=== PATIENT | female | born 1995 | race Two or more races ===

== ENCOUNTER 2024-02-18 21:52 | Inpatient (IN) | payer OTHER ==
[~2024-02-18] VITALS: Ht 160 cm; Wt 75.0 kg
[2024-02-18] MEDS ORDERED: DEXTROSE (50%) 50ML SYRG IV PRN (22:15)
--- NOTE | 2024-02-18 22:26 | ED.PDOC ---
History of Present Illness HPI Comments 28-year-old female with a history of type 1 diabetes states that she ran out of insulin short-acting while she was driving to [place] and has not been able to use her short-acting insulin for the last 3 or 4 days and then developed some lower back pain radiating to her lower abdomen with copious nausea and vomiting over the last 2 days. Patient presented to [facility] and was diagnosed with diabetic ketoacidosis and was transferred to [facility] for further inpatient care. 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 Hx Family History Family History: Reviewed,noncontributory to illness Social History Smoker: Non-Smoker Drugs: Denies Drug Use Constitutional: reports: fatigue, malaise, weakness Gastrointestinal: reports: abdominal pain, nausea, vomiting Musculoskeletal: reports: back pain All Other Systems: Reviewed and Negative Physical Exam General Appearance: Mild Distress, Normal HEENT: Normal ENT Inspection, Pharynx Normal, TMs Normal Neck: Full Range of Motion, Non-Tender, Normal, Normal Inspection Respiratory: Chest Non-Tender, Lungs Clear, No Accessory Muscle Use, No Respiratory Distress, Normal Breath Sounds Cardiovascular: Tachycardia Breast Exam: Deferred Gastrointestinal: No Organomegaly, Non Tender, No Pulsatile Mass, Normal Bowel Sounds, Soft Genitalia: Deferred Pelvic: Deferred Rectal: Deferred Extremities: No calf tenderness, Normal capillary refill, Normal inspection, Normal range of motion, Non-tender, No pedal edema Musculoskeletal : Apperance: Normal Neurologic: Alert, nutrition services aide II-XII nml as Tested, No Motor Deficits, Normal Affect, Normal Mood, No Sensory Deficits Cerebellar Function: Normal Reflexes: Normal Skin: Dry, Normal Color, Warm Lymphatic: No Adenopathy Was a procedure done? Was a procedure done?: No Differential Dx Considerations may include: Differential diagnosis includes but not limited to: Diabetic ketoacidosis, hyperosmolar syndrome, dehydration, sepsis, acute renal injury, end-organ failure and others X-Ray, Labs, Meds, VS Vital Signs Date Time Temp Pulse Resp B/P (MAP) Pulse Ox O2 Delivery O2 Flow Rate FiO2 02/18/24 22:30 96.5 99 18 124/82 (96) 100 96.5 02/18/24 22:06 96.5 104 18 122/83 (96) 98 02/18/24 22:06 Room Air* 0 21 Lab Test 02/18/24 22:45 02/18/24 22:39 02/18/24 22:27 Range/Units Blood Gas Specimen Type Arterial Blood Gas Sample Site Left radial Blood Gas Patient Temperature 37.0 Arterial Blood Date Drawn [id number] Arterial Blood pH 7.329 L 7.350-7.450 Arterial Blood Partial Pressure CO2 22.1 L 32.0-45.0 mmHg Arterial Blood Partial Pressure O2 101.8 83.0-108.0 mmHg Arterial Blood HCO3 11.4 L 21.0-28.0 mmol/L Arterial Blood Oxygen Saturation 97.9 94.0-98.0 % Arterial Blood Base Excess -12.4 L -2.0-3.0 mmol/L Arterial Blood Oxyhemoglobin 96.6 94.0-98.0 % Arterial Blood Carboxyhemoglobin 0.6 0.5-1.5 % Arterial Blood Methemoglobin 0.7 0.0-1.5 % Yaniv Test Yes Blood Gas Total Hemoglobin 13.90 12.0-16.0 g/dL Blood Gas Modality Room air FiO2 % 21.0 Specimen Drawn By Che cuello rrt Blood Gas Critical Value Read Back yes Blood Gas Notified Time [id number] Urine Color Colorless Yellow Urine Clarity Turbid H Clear Urine pH 6.0 5.0-9.0 Urine Specific [place] 1.007 1.001-1.035 Urine Protein Trace H Negative Urine Ketones 3+ H Negative Urine Blood 1+ H Negative /uL Urine Nitrite Negative Negative Urine Bilirubin Negative Negative Urine Urobilinogen Normal Negative mg/dL Urine Leukocyte Esterase Trace Negative /uL Urine RBC 2 0 - 4 /hpf Urine WBC 8 0 - 5 /hpf Urine Squamous Epithelial Cells Few <5 /hpf Urine Bacteria Many H None Seen /hpf Urine Glucose Normal Normal mg/dL White Blood Count 9.7 4.4-10.8 10^3/uL Red Blood Count 4.44 4.0-5.20 10^6/uL Hemoglobin 14.5 12.2-16.2 g/dL Hematocrit 42.6 36.0-46.0 % Mean Corpuscular Volume 95.9 80.0-100.0 fL Mean Corpuscular Hemoglobin 32.6 H 28.0-32.0 pg Mean Corpuscular Hemoglobin Concent 34.0 32.0-36.0 g/dL Red Cell Distribution Width 12.8 11.8-14.3 % Platelet Count 290 140-450 10^3/uL Mean Platelet Volume 8.2 6.9-10.8 fL Neutrophils (%) (Auto) 69.8 37.0-80.0 % Lymphocytes (%) (Auto) 17.1 10.0-50.0 % Monocytes (%) (Auto) 12.2 H 0.0-12.0 % Eosinophils (%) (Auto) 0.1 0.0-7.0 % Basophils (%) (Auto) 0.8 0.0-2.0 % Neutrophils # (Auto) 6.7 1.6-8.6 10 ^3/uL Lymphocytes # (Auto) 1.7 0.4-5.4 10 ^3/uL Monocytes # (Auto) 1.2 0-1.3 10 ^3/uL Eosinophils # (Auto) 0 0-0.8 10 ^3/uL Basophils # (Auto) 0.1 0-0.2 10 ^3/uL Nucleated Red Blood Cells 0.0 % Sodium Level 137 136-145 mmol/L Potassium Level 3.0 L 3.5-5.1 mmol/L Chloride Level 108 H 98-107 mmol/L Carbon Dioxide Level 14 L 20-31 mmol/L Anion Gap 15 5-15 Blood Urea Nitrogen 8 L 9-23 mg/dL Creatinine 0.95 0.550-1.02 mg/dL Glomerular Filtration Rate Calc 84 >90 mL/min BUN/Creatinine Ratio 8.4 L 10.0-20.0 Serum Glucose 96 74-106 mg/dL Calcium Level 9.1 8.7-10.4 mg/dL Total Bilirubin 1.1 H 0.2-1.0 mg/dL Aspartate Amino Transferase (AST) 26 13-40 U/L Alanine Aminotransferase (ALT) 33 7-40 U/L Alkaline Phosphatase 81 46-116 U/L Total Protein 6.7 5.7-8.2 g/dL Albumin 4.4 3.2-4.8 g/dL Beta-Hydroxybutyric Acid 2.892 H < 0.4 mmol/L Current Medications Medications (Trade) Dose Ordered Sig/Chavo Route Start Time Stop Time Status Last Admin Potassium Chloride/Dextrose/ Sod Cl 1,000 ml @ 120 mls/hr Q8H20M ONCE IV 02/18/24 22:15 02/19/24 06:34 02/18/24 22:30 Diagnostic Test (Pha) (Accu-Chek Comfort Curve T) 1 strip Q90MIN 02/18/24 22:30 02/18/24 22:49 Insulin Glargine (Lantus) 15 units ONCE ONCE SC 02/18/24 22:15 02/18/24 22:18 DC 02/18/24 22:36 Time of 1ST Reevaluation: 22:24 Reevaluation 1ST: Unchanged Patient Education/Counseling: Diagnosis, Treatment Family Education/Counseling: No Family Present Sepsis Sepsis Reasesment Focused Exam Sepsis focused exam: focus exam completed Departure 1 Departure Time of Disposition: 22:25 Impression: Primary Impression: Diabetic ketoacidosis Additional Impression: Diabetic ketoacidosis associated with type 1 diabetes mellitus Disposition: ADMITTED INPATIENT Admit to: ICU Condition: Critical Critical Care Note Critical Care Time?: Yes (35 min-critical care time only) Critical care comment: Total critical care time: Approximately 36 minutes Due to a high probability of clinically significant, life threatening deterioration, the patient required my highest level of preparedness to intervene emergently and I personally spent this critical care time directly and personally managing the patient. This critical care time included obtaining a history; examining the patient; pulse oximetry; ordering and review of studies; arranging urgent treatment with development of a management plan; evaluation of patient's response to treatment; frequent reassessment; and, discussions with other providers. This critical care time was performed to assess and manage the high probability of imminent, life-threatening deterioration that could result in multi-organ failure. It was exclusive of separately billable procedures and treating other patients. Stability Stability form required: MARY Jo MD Feb 18, 2024 22:26
[2024-02-18] MEDS: D5W/SOD CHL 0.45%/KCL 40MEQ 1,000 ML IV ONE (22:30)
[2024-02-18] MEDS: INSULIN LANTUS (GLARGINE) 1 /0.01ml (100units/ml) SC ONE (22:36)
[2024-02-18 22:41] LABS: Basophils # (auto) 0.1 10 ^3/uL (0-0.2); Basophils % (auto) 0.8 % (0.0-2.0); Eosinophils # (auto) 0 10 ^3/uL (0-0.8); Eosinophils % (auto) 0.1 % (0.0-7.0); Hematocrit 42.6 % (36.0-46.0); Hemoglobin 14.5 g/dL (12.2-16.2); Lymphocytes # (auto) 1.7 10 ^3/uL (0.4-5.4); Lymphocytes % (auto) 17.1 % (10.0-50.0); Mean Corpuscular Hemoglobin 32.6 pg (28.0-32.0); Mean Corpuscular Volume 95.9 fL (80.0-100.0); Monocytes # (auto) 1.2 10 ^3/uL (0-1.3); Monocytes % (auto) 12.2 % (0.0-12.0); Neutrophils # (auto) 6.7 10 ^3/uL (1.6-8.6); Neutrophils % (auto) 69.8 % (37.0-80.0); Platelet Count (auto) 290 10^3/uL (140-450); Red Blood Cells 4.44 10^6/uL (4.0-5.20); Red Cell Distribution Width 12.8 % (11.8-14.3); White Blood Cell 9.7 10^3/uL (4.4-10.8)
[2024-02-18 22:46] LABS: Urine Bacteria MANY /hpf (None Seen); Urine Blood 1+ /uL (Negative); Urine Clarity Turbid (Clear); Urine Color Colorless (Yellow); Urine Protein, UAD TRACE (Negative); Urine Specific Gravity 1.007 (1.001-1.035); Urine Squamous Epithelial Cell FEW /hpf (<5); Urine Urobilinogen Normal (Negative); Urine WBC 8 /hpf (0 - 5)
[2024-02-18] MEDS: ACCU-CHEK COMFORT CURVE STRIP VI SCH (22:49)
[2024-02-18 22:57] LABS: Base Excess -12.4 mmol/L (-2.0-3.0)
[2024-02-18 22:57] LABS: Alanine Aminotransferase 33 U/L (7-40); Albumin 4.4 g/dL (3.2-4.8); Alkaline Phosphatase 81 U/L (46-116); Anion Gap 15 (5-15); Aspartate Aminotransferase 26 U/L (13-40); BUN/Creatinine Ratio 8.4 (10.0-20.0); Bilirubin, Total 1.1 mg/dL (0.2-1.0); Calcium 9.1 mg/dL (8.7-10.4); Glucose 96 mg/dL (74-106); Sodium 137 mmol/L (136-145)
[2024-02-18 22:58] LABS: Blood Urea Nitrogen 8 mg/dL (9-23); Carbon Dioxide 14 mmol/L (20-31); Chloride 108 mmol/L (98-107); Total Protein 6.7 g/dL (5.7-8.2)
[2024-02-18] MEDS: INSULIN DRIP 100 UNIT/100ML 100 ML IV SCH (23:32)
[2024-02-19] MEDS: POTASSIUM EFFERVESENT TAB 25 MEQ GT ONE (00:15)
[2024-02-19] MEDS ORDERED: DEXTROSE (50%) 50ML SYRG IV PRN (00:15)
[2024-02-19 00:28] LABS: Sodium 136 mmol/L (136-145)
[2024-02-19 00:29] LABS: Anion Gap 13 (5-15)
--- NOTE | 2024-02-19 00:29 | DVHHPRES ---
History of Present Illness Resident Creating Document: OTTONIEL WARREN RESIDENT History of Present Illness This is a 28-year-old female with past medical history type 1 diabetes mellitus transferred from [facility] to the [facility] ED with a diagnosis of diabetic ketoacidosis for further inpatient care. The patient went to [facility] on 02/18/24 morning with a complaint of intractable vomiting for 1 day and also mentioned missed dose of short-acting insulin for last 1 week prior to this admission. Patient states that she went to [place] 1 week ago and during her stay in [place] she was not using any short-acting insulin ,only took Lantus and mentioned this is her 1st time she was admitted in the hospital with these symptoms. The patient denies chest pain, shortness of breath, flu-like symptoms, sick contact, abdominal pain, dysuria, hematuria or any change in bowel and bladder movement. Past Medical History Type 1 Diabetes mellitus Past Surgical History None Family History None Past Social History Lives with family Vapes for last 4 years, social drinker and smoke marijuana every day Review of Systems Constitutional: No: Fever, Chills, Sweats, Weakness, Malaise, Other Eyes: No: Pain, Vision change, Conjunctivae inflammation, Eyelid inflammation, Other, Redness ENT: No: Ear pain, Ear discharge, Nose pain, Nose discharge, Nose congestion, Mouth pain, Mouth swelling, Throat pain, Throat swelling, Other Respiratory: No: Cough, Dry, Shortness of breath, SOB with excertion, Wheezing, Hemoptysis, Pleuritic Pain, Sputum, Wheezing, Other Gastrointestinal: Nausea, Vomiting; No: Abdominal Pain, Diarrhea, Constipation, Melena, Hematochezia, Other Genitourinary: No Dysuria, No Frequency, No Incontinence, No Hematuria, No Retention, No Other Musculoskeletal: No: other, neck pain, shoulder pain, arm pain, back pain, hand pain, leg pain, foot pain Skin: No: Rash, Lesions, Jaundice, Bruising, Other Neurological: No: Weakness, Numbness, Incoordination, Change in speech, Confusion, Seizures, Other Allergies: Coded Allergies: NO KNOWN ALLERGIES (Unverified , 02/18/24) Medications Current Medications Medications Dose Ordered Sig/Chavo Route Start Time Stop Time Status Last Admin Dose Admin Insulin Human (Reg)/Sodium Chloride 100 ml @ 0.5 mls/hr Q24H IV 02/18/24 22:15 02/18/24 23:32 0.5 MLS/HR Diagnostic Test (Pha) 1 strip Q90MIN 02/18/24 22:30 02/19/24 00:07 1 STRIP Insulin Glargine 15 units DAILY SC 02/19/24 10:00 Diagnostic Test (Pha) 1 strip ACHS 02/19/24 07:00 Insulin Human Regular ACHS SC 02/19/24 07:00 Dextrose 50 ml UD PRN IV 02/19/24 00:15 Exam Vital Signs Vital Signs Date Time Temp Pulse Resp B/P (MAP) Pulse Ox O2 Delivery O2 Flow Rate FiO2 02/18/24 22:30 96.5 99 18 124/82 (96) 100 96.5 02/18/24 22:06 Room Air* 0 21 Exam Physical examination: General Appearance: Alert, Oriented X3, Cooperative, No acute distress HEENT: Atraumatic, PERRLA, EOMI, Mucous membrane dry Respiratory: Clear to auscultation, Normal air movement Cardiovascular: Regular rate, Normal S1, Normal S2, No murmurs, no chest wall tenderness Abdominal: Normal bowel sounds, Soft, No tenderness, No hepatospenomegaly, No masses Extremities: No clubbing, No cyanosis, No edema, Normal pulses, No tenderness/swelling Skin: No rashes, No breakdown, No significant lesion Neuro: Normal gait, Normal speech, Strength at 5/5 X4 ext, Normal tone, Sensation intact, grossly intact cranial nerves. Psych/Mental Status: Mental status NL, Mood NL Labs/Xrays Labs Test 02/19/24 00:06 02/18/24 23:59 02/18/24 22:45 02/18/24 22:39 Range/Units POC Glucose 142 H 70-106 mg/dl Blood Gas Specimen Type Arterial Blood Gas Sample Site Left radial Blood Gas Patient Temperature 37.0 Arterial Blood Date Drawn [id number] Arterial Blood pH 7.329 L 7.350-7.450 Arterial Blood Partial Pressure CO2 22.1 L 32.0-45.0 mmHg Arterial Blood Partial Pressure O2 101.8 83.0-108.0 mmHg Arterial Blood HCO3 11.4 L 21.0-28.0 mmol/L Arterial Blood Oxygen Saturation 97.9 94.0-98.0 % Arterial Blood Base Excess -12.4 L -2.0-3.0 mmol/L Arterial Blood Oxyhemoglobin 96.6 94.0-98.0 % Arterial Blood Carboxyhemoglobin 0.6 0.5-1.5 % Arterial Blood Methemoglobin 0.7 0.0-1.5 % Yaniv Test Yes Blood Gas Total Hemoglobin 13.90 12.0-16.0 g/dL Blood Gas Modality Room air FiO2 % 21.0 Specimen Drawn By Che cuello rrt Blood Gas Critical Value Read Back yes Blood Gas Notified Time [id number] Urine Color Colorless Yellow Urine Clarity Turbid H Clear Urine pH 6.0 5.0-9.0 Urine Specific [place] 1.007 1.001-1.035 Urine Protein Trace H Negative Urine Ketones 3+ H Negative Urine Blood 1+ H Negative /uL Urine Nitrite Negative Negative Urine Bilirubin Negative Negative Urine Urobilinogen Normal Negative mg/dL Urine Leukocyte Esterase Trace Negative /uL Urine RBC 2 0 - 4 /hpf Urine WBC 8 0 - 5 /hpf Urine Squamous Epithelial Cells Few <5 /hpf Urine Bacteria Many H None Seen /hpf Urine Glucose Normal Normal mg/dL Test 02/18/24 22:27 Range/Units White Blood Count 9.7 4.4-10.8 10^3/uL Red Blood Count 4.44 4.0-5.20 10^6/uL Hemoglobin 14.5 12.2-16.2 g/dL Hematocrit 42.6 36.0-46.0 % Mean Corpuscular Volume 95.9 80.0-100.0 fL Mean Corpuscular Hemoglobin 32.6 H 28.0-32.0 pg Mean Corpuscular Hemoglobin Concent 34.0 32.0-36.0 g/dL Red Cell Distribution Width 12.8 11.8-14.3 % Platelet Count 290 140-450 10^3/uL Mean Platelet Volume 8.2 6.9-10.8 fL Neutrophils (%) (Auto) 69.8 37.0-80.0 % Lymphocytes (%) (Auto) 17.1 10.0-50.0 % Monocytes (%) (Auto) 12.2 H 0.0-12.0 % Eosinophils (%) (Auto) 0.1 0.0-7.0 % Basophils (%) (Auto) 0.8 0.0-2.0 % Neutrophils # (Auto) 6.7 1.6-8.6 10 ^3/uL Lymphocytes # (Auto) 1.7 0.4-5.4 10 ^3/uL Monocytes # (Auto) 1.2 0-1.3 10 ^3/uL Eosinophils # (Auto) 0 0-0.8 10 ^3/uL Basophils # (Auto) 0.1 0-0.2 10 ^3/uL Nucleated Red Blood Cells 0.0 % Total Bilirubin 1.1 H 0.2-1.0 mg/dL Aspartate Amino Transferase (AST) 26 13-40 U/L Alanine Aminotransferase (ALT) 33 7-40 U/L Alkaline Phosphatase 81 46-116 U/L Total Protein 6.7 5.7-8.2 g/dL Albumin 4.4 3.2-4.8 g/dL Beta-Hydroxybutyric Acid 2.892 H < 0.4 mmol/L Assessment/Plan Assessment/Plan Assessment and plan: # Diabetic ketoacidosis - Blood sugar is now less than 150, normal anion gap - IV normal saline at 100 mL/hour once - Lantus 15 units SC given @ 10:36 - Overlap of subcutaneous insulin and insulin drip for almost 2 hours - Discontinued insulin drip and IV dextrose with potassium drip at 1:00 - Patient is on consistent carbohydrate diet - Ordered Lantus 15 units SC @QAM - Accu check at q.4 hours - Mild sliding scale of insulin # Hypokalemia - Replenished. Goal of care discussed with the patient for more than 20 minutes full code Plan discussed with Dr. Hernández Plan discussed with: Patient, Other Date of Service: Feb 19, 2024 Billing Provider: ABDULKADIR HERNÁNDEZ MD Common Visit Codes: [id number] INP/OBS CARE (HIGH) OTTONIEL WARREN RESIDENT Feb 19, 2024 00:29 ABDULKADIR HERNÁNDEZ MD Feb 20, 2024 10:48
[2024-02-19 00:34] LABS: BUN/Creatinine Ratio 9.9 (10.0-20.0)
[2024-02-19] MEDS: SODIUM CHLORIDE 0.9% 1,000 ML IV ONE (00:48)
[2024-02-19] MEDS: POTASSIUM CHL 20 Meq TABLET PO ONE (00:48)
[2024-02-19 00:53] LABS: Carbon Dioxide 13 mmol/L (20-31); Chloride 110 mmol/L (98-107); Potassium 3.4 mmol/L (3.5-5.1)
[2024-02-19 00:54] LABS: Blood Urea Nitrogen 8 mg/dL (9-23); Calcium 8.7 mg/dL (8.7-10.4); Glucose 135 mg/dL (74-106)
[2024-02-19] MEDS: POTASSIUM CHL 20MEQ/100ML 100 ML IV ONE (03:04)
[2024-02-19] MEDS: HYDROcodone-ACET 5/325MG TAB PO ONE (04:47)
--- NOTE | 2024-02-19 05:53 | DVH ---
CHEST RADIOGRAPH Indication: UPPER BACK PAIN Technique: Single frontal view of the chest was obtained Comparison: None IMPRESSION: Cardiomediastinal silhouette appears unremarkable. The lungs appear clear without focal airspace opa city, effusion, or pneumothorax.
[2024-02-19] MEDS: ACCU-CHEK COMFORT CURVE STRIP VI SCH (06:55)
[2024-02-19] MEDS: InsuLIN REG 1unit/0.01ml Soln (100units/ml) SC SCH (06:56)
[2024-02-19 08:41] VITALS: PULSE 91; RESP 15; O2SAT 97
[2024-02-19] MEDS ORDERED: SOD CHL 0.9%/ KCL 40MEQ 1,000 ML IV SCH (10:30)
[2024-02-19 11:04] LABS: Anion Gap 10 (5-15); Potassium 3.8 mmol/L (3.5-5.1); Sodium 140 mmol/L (136-145)
[2024-02-19 11:10] LABS: BUN/Creatinine Ratio 10.8 (10.0-20.0)
[2024-02-19 11:16] LABS: Blood Urea Nitrogen 8 mg/dL (9-23); Carbon Dioxide 19 mmol/L (20-31); Chloride 111 mmol/L (98-107); Glucose 73 mg/dL (74-106)
[2024-02-19] MEDS ORDERED: cefTRIAXone 1GM/50ML D5W 50 ML IV SCH (11:30)
--- NOTE | 2024-02-19 11:32 | DVHPN2 ---
Subjective Patient has any symptoms at this time. Patient did report having problems with lower back pain and suprapubic pain. Reviewed: Care Plan, H&P, Labs Changes from previous H/P or p: No Changes, Changes General: Per HPI Eyes: No Pain, No Vision change, No Conjunctivae inflammation, No Eyelid inflammation, No Other, No Redness ENT: No Ear pain, No Ear discharge, No Nose pain, No Nose discharge, No Nose congestion, No Mouth pain, No Mouth swelling, No Throat pain, No Throat swelling, No Other Respiratory: No Cough, No Dry, No Shortness of breath, No SOB with excertion, No Wheezing, No Hemoptysis, No Pleuritic Pain, No Sputum, No Other Gastrointestinal: Nausea, Vomiting; No Abdominal Pain, No Diarrhea, No Constipation, No Melena, No Hematochezia, No Other Genitourinary: No Dysuria, No Frequency, No Incontinence, No Hematuria, No Retention, No Other Musculoskeletal: No other, No neck pain, No shoulder pain, No arm pain, No back pain, No hand pain, No leg pain, No foot pain Skin: No Rash, No Lesions, No Jaundice, No Bruising, No Other Objective Vitals Vital Signs Date Time Temp Pulse Resp B/P (MAP) Pulse Ox O2 Delivery O2 Flow Rate FiO2 02/19/24 09:52 90 17 116/71 (86) 96 02/19/24 08:41 Room Air* 0 21 02/19/24 00:00 98.1 98.1 Intake/Output Intake and Output 02/19/24 07:00 Intake Total 870 ml Balance 870 ml Intake IV Total 870 ml General Appearance: Alert, Oriented X3, Cooperative, mild distress HEENT: Atraumatic, PERRLA Cardiovascular: Normal S1, Normal S2 Abdomen: Normal bowel sounds, Soft Musculoskeletal: Normal sensory function, Normal motor function Neuro: Normal gait, Normal speech Psych/Mental Status: Mental status NL, Mood NL Medications Current Medications Medications Dose Ordered Sig/Chavo Route Start Time Stop Time Status Last Admin Dose Admin Insulin Glargine 15 units DAILY SC 02/19/24 10:00 Diagnostic Test (Pha) 1 strip ACHS 02/19/24 07:00 02/19/24 06:55 1 STRIP Insulin Human Regular ACHS SC 02/19/24 07:00 Dextrose 50 ml UD PRN IV 02/19/24 00:15 Potassium Chloride/Sodium Chloride 1,000 ml @ 100 mls/hr Q10H IV 02/19/24 10:30 Laboratory Results Laboratory Tests 02/18/24 22:27 02/19/24 10:32 Chemistry Test 02/18/24 22:27 02/18/24 23:59 02/19/24 10:32 Albumin 4.4 g/dL (3.2-4.8) Calcium Level 9.1 mg/dL (8.7-10.4) 8.7 mg/dL (8.7-10.4) 9.0 mg/dL (8.7-10.4) Total Protein 6.7 g/dL (5.7-8.2) LFT Test 02/18/24 22:27 Alanine Aminotransferase (ALT) 33 U/L (7-40) Alkaline Phosphatase 81 U/L (46-116) Aspartate Amino Transferase (AST) 26 U/L (13-40) Total Bilirubin 1.1 mg/dL (0.2-1.0) H Urinalysis Test 02/18/24 22:39 Urine Color Colorless (Yellow) Urine Clarity Turbid (Clear) H Urine pH 6.0 (5.0-9.0) Urine Specific [place] 1.007 (1.001-1.035) Urine Protein Trace (Negative) H Urine Ketones 3+ (Negative) H Urine Blood 1+ /uL (Negative) H Urine Nitrite Negative (Negative) Urine Bilirubin Negative (Negative) Urine Urobilinogen Normal mg/dL (Negative) Urine Leukocyte Esterase Trace /uL (Negative) Urine RBC 2 /hpf (0 - 4) Urine WBC 8 /hpf (0 - 5) Urine Squamous Epithelial Cells Few /hpf (<5) Urine Bacteria Many /hpf (None Seen) H Urine Glucose Normal mg/dL (Normal) Blood Gas Results Test 02/18/24 22:45 Arterial Blood pH 7.329 (7.350-7.450) FiO2 % 21.0 Labs and/or images reviewed: Labs reviewed by me, Image(s) reviewed by me Assessment/Plan Assessment/Plan Impression: -diabetic ketoacidosis -diabetes mellitus type 1 -UTI -hypokalemia Plan: -continue IV hydration -potassium replacement -regular insulin sliding scale with Lantus -start Rocephin 1 g IV daily -antiemetics -repeat labs in a.m., reassess for discharge in a.m. -start oral intake Total time spent with patient discussing and formulating plan of care: 35 minutes. This medical document was created using an electronic medical record system with [employer] dictation system. Although this document has been carefully reviewed, there may still be some phonetic and typographical errors. These areas are purely typographical due to imperfections of the software programs, and do not reflect any compromise in the patient's medical care. Plan discussed with: Patient, Other (RN) My Orders Orders - ANEESH MONREAL NP Procedure Category Date Status Time Sod Chl 0.9%/ Kcl PHA 02/19/24 In Process 40meq 10:30 Basic Metabolic Panel LAB 02/20/24 Verified 04:00 Transfer Orders XFER 02/19/24 Verified 11:24 Date of Service: Feb 19, 2024 Billing Provider: ANEESH MONREAL NP Common Visit Codes: [id number] INP/OBS CARE(HIGH) ANEESH MONREAL NP Feb 19, 2024 11:32
[2024-02-19] MEDS: INSULIN LANTUS (GLARGINE) 1 /0.01ml (100units/ml) SC SCH (11:33)
[2024-02-19] MEDS ORDERED: levoFLOXacin 500MG 100 ML IV SCH (11:45)
[2024-02-19] MEDS ORDERED: ONDANSETRON HCL 4 MG/2 ML VIAL IV PRN (11:45)
[2024-02-19] MEDS ORDERED: DOCUSATE SOD 100 MG CAP PO PRN (11:45)
[2024-02-19] MEDS: levoFLOXacin 500 MG TAB PO SCH (12:51)
[2024-02-19] MEDS: traMADol HCL 50 MG TAB PO PRN (12:55)
[2024-02-19] MEDS: SOD CHL 0.9%/ KCL 40MEQ 1,000 ML IV SCH (14:28)
[2024-02-19 21:00] VITALS: BP 124/77; PULSE 96; RESP 18; TEMP 98.7; O2SAT 99
[2024-02-19] MEDS: ACETAMINOPHEN 500 MG TAB or CAP PO PRN (21:33)
[2024-02-20 05:00] VITALS: BP 105/67; PULSE 88; RESP 17; TEMP 98.3; O2SAT 97
[2024-02-20 06:59] VITALS: BP 116/71; PULSE 90; RESP 17; TEMP 98
[2024-02-20 08:05] VITALS: PULSE 86; RESP 18; O2SAT 98
[2024-02-20 08:07] LABS: Anion Gap 10 (5-15); Sodium 139 mmol/L (136-145)
[2024-02-20 08:09] LABS: Calcium 8.8 mg/dL (8.7-10.4); Carbon Dioxide 19 mmol/L (20-31); Chloride 110 mmol/L (98-107); Potassium 3.1 mmol/L (3.5-5.1)
[2024-02-20 08:18] LABS: BUN/Creatinine Ratio 8.9 (10.0-20.0); Blood Urea Nitrogen < 5 mg/dL (9-23); Glucose 120 mg/dL (74-106)
[2024-02-20] MEDS ORDERED: LEVO500T91 PO (08:34)
[2024-02-20] MEDS ORDERED: POTA8TAB38 PO (08:34)
--- NOTE | 2024-02-20 08:46 | DVHDS2 ---
Discharge Summary Date of Admission Feb 19, 2024 at 00:08 Date of Discharge: Feb 20, 2024 Admitting Diagnosis Diabetic ketoacidosis Labs/Diagnostic Data: Laboratory Results Test 02/20/24 06:00 02/19/24 11:28 02/18/24 22:45 02/18/24 22:39 Sodium Level 139 mmol/L (136-145) Potassium Level 3.1 mmol/L (3.5-5.1) Chloride Level 110 mmol/L (98-107) Carbon Dioxide Level 19 mmol/L (20-31) Anion Gap 10 (5-15) Blood Urea Nitrogen < 5 mg/dL (9-23) Creatinine 0.56 mg/dL (0.550-1.02) Glomerular Filtration Rate Calc 128 mL/min (>90) BUN/Creatinine Ratio 8.9 (10.0-20.0) Serum Glucose 120 mg/dL (74-106) Calcium Level 8.8 mg/dL (8.7-10.4) POC Glucose 98 mg/dl (70-106) Blood Gas Specimen Type Arterial Blood Gas Sample Site Left radial Blood Gas Patient Temperature 37.0 Arterial Blood Date Drawn [id number] Arterial Blood pH 7.329 (7.350-7.450) Arterial Blood Partial Pressure CO2 22.1 mmHg (32.0-45.0) Arterial Blood Partial Pressure O2 101.8 mmHg (83.0-108.0) Arterial Blood HCO3 11.4 mmol/L (21.0-28.0) Arterial Blood Oxygen Saturation 97.9 % (94.0-98.0) Arterial Blood Base Excess -12.4 mmol/L (-2.0-3.0) Arterial Blood Oxyhemoglobin 96.6 % (94.0-98.0) Arterial Blood Carboxyhemoglobin 0.6 % (0.5-1.5) Arterial Blood Methemoglobin 0.7 % (0.0-1.5) Yaniv Test Yes Blood Gas Total Hemoglobin 13.90 g/dL (12.0-16.0) Blood Gas Modality Room air FiO2 % 21.0 Specimen Drawn By Che cuello scoop operator Blood Gas Critical Value Read Back yes Blood Gas Notified Time [id number] Urine Color Colorless (Yellow) Urine Clarity Turbid (Clear) Urine pH 6.0 (5.0-9.0) Urine Specific [place] 1.007 (1.001-1.035) Urine Protein Trace (Negative) Urine Ketones 3+ (Negative) Urine Blood 1+ /uL (Negative) Urine Nitrite Negative (Negative) Urine Bilirubin Negative (Negative) Urine Urobilinogen Normal mg/dL (Negative) Urine Leukocyte Esterase Trace /uL (Negative) Urine RBC 2 /hpf (0 - 4) Urine WBC 8 /hpf (0 - 5) Urine Squamous Epithelial Cells Few /hpf (<5) Urine Bacteria Many /hpf (None Seen) Urine Glucose Normal mg/dL (Normal) Test 02/18/24 22:27 White Blood Count 9.7 10^3/uL (4.4-10.8) Red Blood Count 4.44 10^6/uL (4.0-5.20) Hemoglobin 14.5 g/dL (12.2-16.2) Hematocrit 42.6 % (36.0-46.0) Mean Corpuscular Volume 95.9 fL (80.0-100.0) Mean Corpuscular Hemoglobin 32.6 pg (28.0-32.0) Mean Corpuscular Hemoglobin Concent 34.0 g/dL (32.0-36.0) Red Cell Distribution Width 12.8 % (11.8-14.3) Platelet Count 290 10^3/uL (140-450) Mean Platelet Volume 8.2 fL (6.9-10.8) Neutrophils (%) (Auto) 69.8 % (37.0-80.0) Lymphocytes (%) (Auto) 17.1 % (10.0-50.0) Monocytes (%) (Auto) 12.2 % (0.0-12.0) Eosinophils (%) (Auto) 0.1 % (0.0-7.0) Basophils (%) (Auto) 0.8 % (0.0-2.0) Neutrophils # (Auto) 6.7 10 ^3/uL (1.6-8.6) Lymphocytes # (Auto) 1.7 10 ^3/uL (0.4-5.4) Monocytes # (Auto) 1.2 10 ^3/uL (0-1.3) Eosinophils # (Auto) 0 10 ^3/uL (0-0.8) Basophils # (Auto) 0.1 10 ^3/uL (0-0.2) Nucleated Red Blood Cells 0.0 % Total Bilirubin 1.1 mg/dL (0.2-1.0) Aspartate Amino Transferase (AST) 26 U/L (13-40) Alanine Aminotransferase (ALT) 33 U/L (7-40) Alkaline Phosphatase 81 U/L (46-116) Total Protein 6.7 g/dL (5.7-8.2) Albumin 4.4 g/dL (3.2-4.8) Beta-Hydroxybutyric Acid 2.892 mmol/L (< 0.4) Other Laboratory Tests 02/20/24 06:00 02/18/24 22:27 Brief Hx & Hospital Course: History of Present Illness This is a 28-year-old female with past medical history type 1 diabetes mellitus transferred from [facility] to the [facility] with a diagnosis of diabetic ketoacidosis for further inpatient care. The patient went to [facility] on 02/18/24 morning with a complaint of intractable vomiting for 1 day and also mentioned missed dose of short-acting insulin for last 1 week prior to this admission. Patient states that she went to [place] 1 week ago and during her stay in [place] she was not using any short-acting insulin ,only took Lantus and mentioned this is her 1st time she was admitted in the hospital with these symptoms. The patient denies chest pain, shortness of breath, flu-like symptoms, sick contact, abdominal pain, dysuria, hematuria or any change in bowel and bladder movement. Course of hospitalization: Patient was found to be positive for UTI in addition to diabetic ketoacidosis. Patient was started on p.o. Levaquin. Patient was transitioned off of insulin drip, with patient was blood sugars being maintained under 200 with regular insulin sliding scale and Lantus. Patient's vital signs have improved. She will be discharged home and continue with her home diabetic regimen. She will be continued on antibiotic therapy with Levaquin 500 mg p.o. daily for additional five days. She was also found to be hypokalemic, with the patient going to be receiving 50 mEq use of p.o. effervescent, as well as the patient continuing with potassium supplementation for additional five days with Klor-Con 8 mEq daily. She was agreeable with discharge plan. All questions answered. Physical examination General: Alert and Oriented x3. No acute distress. Well-nourished. Eyes: EOMI. Anicteric. HENT: Moist mucous membranes. Lungs: Clear to auscultation bilaterally. No accessory muscle use. Cardiovascular: Regular rate and rhythm. No murmur. No JVD. Abdomen: Soft, non-tender and non-distended. No palpable masses. Extremities: No edema. Non-tender. Skin: No rashes or lesions. Warm. Neurologic: No focal neurological deficits. CN II-XII grossly intact, but not individually tested. Psychiatric: Cooperative. Appropriate mood and affect. Total time spent with patient discussing and formulating plan of care: 35 minutes. This medical document was created using an electronic medical record system with [employer] dictation system. Although this document has been carefully reviewed, there may still be some phonetic and typographical errors. These areas are purely typographical due to imperfections of the software programs, and do not reflect any compromise in the patient's medical care. Condition at Discharge: Fair Final Diagnosis/Problems List DKA Secondary Diagnosis: Cystitis Diabetes mellitus type 1 Hypokalemia Discharge Disposition: Home Discharge Instruct/Medications Diet: Consistent carbohydrate Activity: No Restrictions, As Tolerated Follow Up/Referral: PCP in 1-2 weeks Medications: Levaquin 500mg po daily x 5 days Klor-con 8 meq po daily x 5 days Continue all home medications 36 Discharge Statement: "Patient was advised to return to the ER or call 911 if any headaches, dizziness, shortness of breath, chest pain, abdominal pain, bleeding, fevers, or worsening of medical condition. Patient was counseled about treatment plan, medications, possible side effects, patientverbalized understanding. All questions were answered to the best of my ability. This discharge took greater then 30 minutes in planning, reviewing documentation, counseling the patient, and discussing with other team members." ASSESSMENT ASSESSMENT Assessment DKA Date of Service: Feb 20, 2024 Billing Provider: ANEESH MONREAL NP Common Visit Codes: 50792-URZ/OBS DISCH DAY >30min ANEESH MONREAL NP Feb 20, 2024 08:46
[2024-02-20] MEDS: POTASSIUM EFFERVESENT TAB 25 MEQ PO ONE (08:49)
[2024-02-20 09:00] VITALS: BP 98/59; PULSE 86; RESP 18; TEMP 98.3; O2SAT 98
[2024-02-20 13:00] VITALS: BP 100/68; PULSE 91; RESP 18; TEMP 98; O2SAT 95
== END 2024-02-20 15:34 | disposition home or self-care (01) | DRG 420 ==
LOC: ER 21:52 → EDBD 21:52 → TELE 02-19 00:08 → TELE-CENTR 02-19 19:04 → CENTRAL 02-19 19:31
PROVIDERS: ADMIT Internal Medicine; ATTEND Nurse Practitioner Acute Care
DX: E10.10 Type 1 diabetes mellitus with ketoacidosis without coma (principal); N30.90 Cystitis, unspecified without hematuria; E87.6 Hypokalemia; Z79.4 Long term (current) use of insulin; Z91.148 Patient's other noncompliance with medication regimen for other reason
CPT/HCPCS: 36415; 36600; 71045; 80048; 80053; 81001; 82010; 82805; 82962; 85025; 99291; G0378; J1815; J3480